=== PATIENT | male | born 1990 | race Caucasian/White ===

== ENCOUNTER 2017-02-04 16:27 | Emergency (ER) | payer OTHER ==
--- NOTE | 2017-02-04 16:30 | EDM.PDOC ---
ED HPI GENERAL MEDICAL PROBLEM - General Chief Complaint: Back Pain or Injury Stated Complaint: back pain, slip Time Seen by Provider: 02/04/17 16:28 Source of Information: Reports: Patient, Old Records ([facility] EMR. No paper hospital chart available.) History Limitations: Reports: No Limitations - History of Present Illness INITIAL COMMENTS - FREE TEXT/NARRATIVE: Patient was brought to the emergency room via transport vehicle from [facility] for evaluation of a Workmen's Compensation injury, which occurred at about 15:55 hours this afternoon. He was walking when he accidentally slipped on a puddle on the floor landing on his left hip and back with secondary 6/10 throbbing sharp discomfort. He does have a history of chronic low back pain, which has been under good control recently. He denies any head injury, loss of consciousness, visual changes, paresthesias, neurological deficits, change in mental status, or other complaints or injuries. Note that he has recently chipped a tooth and does have a dentist appointment next week. He did take aspirin at 14:45 hours today secondary to his tooth pain. The patient denies any chest pain/pressure, heart flutter, dizziness, orthostasis, orthopnea, diaphoresis, paresthesias, recent decreased exercise tolerance, or any other anginal-type symptoms. No recent history of abdominal pain, heartburn, nausea, diarrhea, melena, gross hematochezia, or any food intolerance, including fatty foods, etc.. The patient also denies any recent fever, cough, wheezing, dyspnea , etc.. Onset: Today, Sudden Onset Date: 02/04/17 Onset Time: 16:29 Duration: Constant Location: Reports: Back, Lower Extremity, Left. 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 Denies: Afib, Aneurysm, Arrhythmia, Blood Clots/VTE/DVT, CAD, Heart Failure, Heart Murmur, Hypertension, MN, PVD, Syncope Respiratory History: Denies: Asthma, COPD, Intubation, Previous, PE, Pneumothorax, Sleep Apnea Gastrointestinal History: Reports: None. Denies: Celiac Disease, Cholelithiasis , Chronic Constipation, Chronic Diarrhea, Colon Polyp, Gastritis, GERD, GI Bleed , Hepatitis, Hiatal Hernia, Irritable Bowel Syndrome, Pancreatitis, PUD Genitourinary History: Denies: Acute Renal Failure, BPH, Chronic Renal Insuffiency, Renal Calculus, STD, Urinary Incontinence, UTI, Recurrent Musculoskeletal History: Reports: Back Pain, Chronic, Fracture, Osteoarthritis, Other (See Below). Denies: Gout, Neck Pain, Chronic, RA, SLE Other Musculoskeletal History: Fracture of digit #4 of the left hand at age 11, fracture of the phalanx of digit #1 and 2 of the right foot at age 19 Neurological History: Reports: None. Denies: Cerebral Aneurysms, Concussion, CVA, Headaches, Chronic, Head Trauma, Migraines, MS, Seizure, TIA Psychiatric History: Reports: None. Denies: Abuse, Victim of, ADD, ADHD, Addiction, Anxiety, Depression, Psych Hospitalization(s), PTSD, Suicide Attempt , Suicidal Ideation Endocrine/Metabolic History: Reports: None. Denies: Diabetes, Type I, Diabetes , Type II, Hypothyroidism, IDDM Hematologic History: Denies: Anemia, Blood Transfusion(s), Iron Deficiency Immunologic History: Reports: None. Denies: AIDS, HIV, SLE Oncologic (Cancer) History: Reports: None. Denies: Basal Cell Carcinoma, Hodgkin's Lymphoma, Leukemia, Lymphoma, Malignant Melanoma, Non-Hodgkin's Lymphoma, Squamous Cell Carcinoma Dermatologic History: Reports: Psoriasis. Denies: Eczema - Infectious Disease History Infectious Disease History: Reports: Chicken Pox, Mononucleosis (16 years of age without complications). Denies: C-Difficile, Measles, Meningitis, MRSA, Mumps, Pertussis (Whooping Cough), Rheumatic Fever, Rubella, Scarlet Fever, Shingles, VRE - Past Surgical History Head Surgeries/Procedures: Reports: None HEENT Surgical History: Reports: None. Denies: Adenoidectomy, Cataract Surgery , Eye Surgery, Laser Surgery, LASIK, Myringotomy w Tube(s), Naso-Sinus Surgery, Oral Surgery, Tonsillectomy Cardiovascular Surgical History: Reports: None. Denies: Varicose, Vascular Surgery Respiratory Surgical History: Reports: None. Denies: Thoracentesis GI Surgical History: Reports: None. Denies: Appendectomy, Cholecystectomy, Colon, Colonoscopy, EGD, Hernia, Abdominal, Hernia, Inguinal, Hernia Repair/ Other Male Surgical History: Reports: Circumcision, Other (See Below). Denies: Vasectomy Other Male Surgeries/Procedures: Circumcision as an Endocrine Surgical History: Reports: None. Denies: Thyroid Biopsy Neurological Surgical History: Reports: None. Denies: C-Spine, Discectomy, Laminectomy, Lumbar Spine, Spinal Fusion, Thoracic Spine, Vertebroplasty Musculoskeletal Surgical History: Reports: None. Denies: Arthroscopic Knee, Arthroscopic Procedure, Carpal Tunnel, Ganglion Cyst, Joint Replacement, ORIF, Shoulder Surgery Oncologic Surgical History: Reports: None Dermatological Surgical History: Reports: None - Past Imaging History Past Imaging History: Reports: Angiography (Cardiac catheterization at age 16 secondary to atypical chest pain with possible viral etiology but no true complications), Cardiac Echo (At age 16 secondary to viral illness as above), Stress Testing (Cardiolite stress test at age 16 secondary to viral illness as above Stress test that age 16 for viral infection as above) Social & Family History - Tobacco Use Smoking Status *Q: Current Some Day Smoker Tobacco Use Within Last Twelve Months: Cigarettes Years of Tobacco use: 14 Packs/Tins Daily: 0.3 (Maximum use of one half pack per day since age 12) Smoking Cessation Information Provided To Patient: Yes Second Hand Smoke Exposure: No Second Hand Smoke Education Provided: No - Caffeine Use Caffeine Use: Reports: Soda (2 sodas per week), Tea (One glass per month). Denies: Coffee, Energy Drinks - Alcohol Use Alcohol Use History: Yes Days Per Week of Alcohol Use: 0 (DWI at age 18 however no problems with alcohol abuse, treatment, etc.) Number of Drinks Per Day: 4 (Usually beer about once per month) Total Drinks Per Week: 0 Alcohol Use in Last Twelve Months: Yes Alcohol Use Frequency: Socially - Recreational Drug Use Recreational Drug Use: No Drug Use in Last 12 Months: No Recreational Drug Type: Denies: Amphetamines (Speed), Cocaine, Inhalants (Glues , Solvents, Aerosols), LSD (Acid), Marijuana/Hashish, Methamphetamine, Morphine - Living Situation & Occupation Living situation: Reports: (2015, 2 children currently ), with Family ( and children) 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 ED EXAM,LOWER BACK PAIN/INJURY - Physical Exam Exam: See Below Exam Limited By: No Limitations General Appearance: Alert, WD/WN, No Apparent Distress Eye Exam: Bilateral Eye: EOMI, Normal Inspection (No nystagmus), PERRL Head: Atraumatic, Normocephalic Neck: Normal Inspection, Supple, Non-Tender, Full Range of Motion. No: Lymphadenopathy (L), Lymphadenopathy (R), Thyromegaly Respiratory/Chest: No Respiratory Distress, Lungs Clear, Normal Breath Sounds, No Accessory Muscle Use, Chest Non-Tender. No: Pleural Rub, Retractions Cardiovascular: Normal Peripheral Pulses, Regular Rate, Rhythm, No Edema, No Gallop, No JVD, No Murmur, No Rub. No: Gallop/S3, Gallop/S4, Friction Rub GI/Abdominal: Normal Bowel Sounds, Soft, Non-Tender, No Organomegaly, No Distention, No Abnormal Bruit, No Mass, Pelvis Stable, Other (Obese) (Male) Exam: Deferred Rectal (Males) Exam: Deferred Back Exam: Decreased Range of Motion (Secondary to pain), Muscle Spasm ( Moderate left-sided mid to lower lumbar paravertebral muscle spasms with mild localized palpation pain but no ecchymosis, crepitation, deformity, etc.), Paraspinal Tenderness (As above). No: CVA Tenderness (L), CVA Tenderness (R) Extremities: No Pedal Edema, Normal Capillary Refill, Leg Pain (Mild palpation pain over the left major trochanteric area however no evidence of instability, deformity, crepitation, etc., mild discomfort with ambulation) Psychiatric: Normal Affect, Normal Mood Skin Exam: Warm, Dry, Intact, Normal Color, Other (Multiple areas of psoriasis of moderate nature including on the olecranon regions bilaterally but complete skin exam not conducted). No: Diaphoretic, Ecchymosis, Wound/Incision Lymphatic: No Adenopathy Course - Vital Signs Last Recorded V/S: Last Vital Signs Temp 36.9 C 02/04/17 16:31 Pulse 85 02/04/17 16:31 Resp 20 02/04/17 16:31 BP 159/78 H 02/04/17 16:31 Pulse Ox 98 02/04/17 16:31 Vital Signs - 24 hr 02/04/17 16:31 Temperature [ 36.9 C Oral] Pulse, 85 Peripheral [ Left Pulse Oximetry] Respiratory 20 Rate Blood Pressure 159/78 H [Left Upper Arm ] O2 Sat by Pulse 98 Oximetry - Orders/Labs/Meds Orders: Active Orders 24 hr Category Date Time Status Hip Min 2V or 3V w Pelvis Lt [CR] Stat Exams 02/04/17 16:30 Ordered Lumbar Spine 2 or 3V [CR] Stat Exams 02/04/17 16:31 Ordered Obtain Past Medical Record [OM.PC] Routine Oth 02/04/17 16:30 Active Labs: None Meds: None - Radiology Interpretation Free Text/Narrative:: X-rays of the left hip, 2 views with additional AP view of the pelvis, shows no evidence of fracture, dislocation, etc. X-rays of the lumbar spine, 3 views, shows no evidence of fracture, dislocation , etc. with only mild decrease in lordosis and only mild arthritic changes present Departure - Departure Time of Disposition: 17:30 Disposition: Home, Self-Care 01 Condition: Good Clinical Impression: Osteoarthritis, Low back pain, Hip pain, left, Psoriasis, Tobacco abuse counseling - Discharge Information Prescriptions: Cyclobenzaprine [Flexeril] 10 mg PO TID PRN #30 tablet PRN Reason: Spasms Instructions: Muscle Strain, [id number], Back Pain, Adult, [id number] Referrals: PCP,None [Primary Care Provider] - Forms: ED Department Discharge Additional Instructions: 1. Follow up with your regular provider in 10-14 days as needed, if symptoms persist. 2. Tylenol 650 mg by mouth every 4 hours and/or OTC ibuprofen 2-3 tabs by mouth every 6 hours with food as directed./needed. 3. BenGay or equivalent, heating pad, and/or ice packs as directed. 4. Work excuse- See Form 5. Stop all tobacco use ZI as directed/per provided information and consider contacting [employer]uit [employer], etc.. 6. Sedation precautions with Flexeril as discussed - Problem List & Annotations (1) Low back pain SNOMED Code(s): 852826456 Code(s): M54.5 - LOW BACK PAIN Status: Acute Priority: High Onset Date : 02/04/17 Annotation/Comment:: Low back sprain with aggravation of previous intermittent chronic low back pain. Work excuse/[place] form and Workmen's Compensation forms were completed. Otherwise symptomatic relief as per discharge instructions. Flexeril was prescribed Qualifiers: Chronicity: acute Back pain laterality: left Sciatica presence: without sciatica Qualified Code(s): M54.5 - Low back pain (2) Hip pain, left SNOMED Code(s): 62792341 Code(s): M25.552 - PAIN IN LEFT HIP Status: Acute Priority: High Onset Date: 02/04/17 Annotation/Comment:: Mild hip contusion/sprain with therapy as above (3) Osteoarthritis SNOMED Code(s): 133381303 Code(s): M19.90 - UNSPECIFIED OSTEOARTHRITIS, UNSPECIFIED SITE Status: Chronic Priority: Medium Annotation/Comment:: Otherwise stable by history Qualifiers: Osteoarthritis location: multiple joints Osteoarthritis type: primary Qualified Code(s): M15.0 - Primary generalized (osteo)arthritis (4) Psoriasis SNOMED Code(s): 0907661 Code(s): L40.9 - PSORIASIS, UNSPECIFIED Status: Chronic Priority: Medium Annotation/Comment:: Stable by history with no current medical therapy (5) Tobacco abuse counseling SNOMED Code(s): 222415558, [id number], [id number] Code(s): Z71.6 - TOBACCO ABUSE COUNSELING Status: Chronic Priority: Medium Current Visit: Yes Annotation/Comment:: Tobacco cessation strongly encouraged with information provided at discharge - Problem List Review Problem List Initiated/Reviewed/Updated: Yes - My Orders Last 24 Hours: My Active Orders 02/04/17 16:30 Hip Min 2V or 3V w Pelvis Lt [CR] Stat Obtain Past Medical Record [OM.PC] Routine 02/04/17 16:31 Lumbar Spine 2 or 3V [CR] Stat - Assessment/Plan Last 24 Hours: My Active Orders 02/04/17 16:30 Hip Min 2V or 3V w Pelvis Lt [CR] Stat Obtain Past Medical Record [OM.PC] Routine 02/04/17 16:31 Lumbar Spine 2 or 3V [CR] Stat Assessment:: As above Plan: As above. Extensive precautions were given to the patient, who is in agreement with the treatment plan. See Patient Instructions for further treatment and plan.
[2017-02-04 16:32] VITALS: BP 159/78
== END 2017-02-04 17:35 | disposition home or self-care (01) ==
LOC: LL.ED 16:27
DX: M25.552 Pain in left hip (principal); M54.5 Low back pain; M19.90 Unspecified osteoarthritis, unspecified site; L40.9 Psoriasis, unspecified; F17.210 Nicotine dependence, cigarettes, uncomplicated; H54.7 Unspecified visual loss; J44.9 Chronic obstructive pulmonary disease, unspecified; Z71.6 Tobacco abuse counseling
CPT/HCPCS: 72100; 99284